=== PATIENT | female | born 1935 | race Two or more races ===

== ENCOUNTER → 2024-05-09 09:05 | Outpatient (REF) | payer MEDICARE, OTHER, SELFPAY | LOC: RAD 09:05 | PROVIDERS: ATTENDING PHYSICIAN Internal Medicine Interventional Cardiology | DX: I35.0 Nonrheumatic aortic (valve) stenosis (principal) | CPT/HCPCS: 74174; 75572; Q9967 ==

== ENCOUNTER 2024-05-23 07:37 | Outpatient (RCR) | payer MEDICARE, OTHER, SELFPAY ==
[2024-05-23] MEDS: NSS 500 IV (08:07)
[2024-05-23 08:26] VITALS: BP 122/52
--- NOTE | 2024-05-23 10:42 | PTCARENOTE ---
0910-Vivi Cárdenas PRESIDENT [employer] in to see patient after reviewing previous CT scan, today's CT not needed. This was explained to patient and family members. IV Dc'd and pt to be seen by Dr. Knight today. Pt discharged in good condition. Discharged with family
== END 2024-05-24 08:02 | disposition home or self-care (01) ==
LOC: OID 07:37
PROVIDERS: ATTENDING PHYSICIAN Nurse Practitioner Adult Health; FAMILY PHYSICIAN Internal Medicine
DX: I35.0 Nonrheumatic aortic (valve) stenosis (principal); R06.09 Other forms of dyspnea; I25.10 Atherosclerotic heart disease of native coronary artery without angina pectoris; I50.32 Chronic diastolic (congestive) heart failure
CPT/HCPCS: 96360